=== PATIENT | female | born 1935 ===

== ENCOUNTER 2024-05-04 11:45 | Emergency (ER) | payer MEDICARE, BC, SELFPAY ==
[2024-05-04] VITALS (20 sets, daily range): BP systolic 136–210; BP diastolic 60–76; PULSE 74–87; RESP 19; TEMP 36.7; O2SAT 95–98
--- NOTE | 2024-05-04 12:15 | DI.CT_ITS ---
Exam(s) CT RENAL COLIC WO EXAM: CT RENAL COLIC WO CLINICAL HISTORY: left flank pain. TECHNIQUE: Imaging Protocol: Axial computed tomography images with coronal and sagittal reformatted images were created and reviewed CONTRAST MATERIAL: Intravenous: none Oral: None COMPARISON: None FINDINGS: VISUALIZED LUNG BASES: No nodules nor pleural effusions evident. ABDOMEN: There is no ascites. LIVER: There is a benign-appearing calcific density in the right hepatic lobe measuring approximately 2 x 1.7 cm. No other focal hepatic findings on this non few study. GALLBLADDER/BILIARY: No obvious gallbladder pathology. CBD is not dilated. PANCREAS: No evidence of pancreatic mass nor dilatation of the pancreatic duct. SPLEEN: Spleen is not enlarged. No obvious intrasplenic lesions. ADRENALS: There are no significant adrenal masses. KIDNEYS:Left kidney unremarkable. Right kidney unremarkable. No solid renal masses. No calculi nor hydronephrosis. . ABDOMINAL AORTA: Calcified but not enlarged. Iliac arteries also calcified but not enlarged. LYMPH NODES: There is no retroperitoneal nor paraaortic adenopathy. ABDOMINAL WALL: No evidence of significant anterior abdominal wall nor inguinal hernia. GI: There is no evidence of bowel obstruction, free air, nor abscess. PELVIS: LYMPH NODES: There is no intrapelvic nor inguinal adenopathy. GI: No evidence of appendicitis.No evidence of sigmoid diverticulitis.Part of the pelvis is obscured by beam hardening artifact from right hip prosthesis. URINARY BLADDER: Obscured by beam hardening artifact from right hip prosthesis. Bladder is not diste nded. REPRODUCTIVE: Uterus is atrophic or surgically absent. Adnexal regions are obscured by beam hardenin g artifact from right hip prosthesis. OSSEOUS: Right hip prosthesis. No fractures. Advanced disc space narrowing L3-4 level. No listhesis. No significant osseous lesio ns. IMPRESSION: 1. No evidence of radiopaque urinary tract calculi. No hydronephrosis. 2. Urinary bladder is obscured by beam hardening artifact from right hip prosthesis. 3. Other findings as above. Findings discussed with ER provider 05/04/2024 2:01 p.m. RADIATION DOSE DELIVERED: 204.96mGy.cm Total DLP DATA REPOSITORY: All CT scans at this facility are submitted to the National Radiology Data Registry (NRDR) Dose Index Registry (DIR) with the [employer] ([employer]). RADIATION OPTIMIZATION: All CT scans at this facility use at least one of these dose optimization te chniques: automated exposure control; mA and/or kV adjustment per patient size (includes targeted exa ms where dose is matched to clinical indication); or iterative reconstruction.
--- NOTE | 2024-05-04 12:15 | DI.CT_ITS ---
Exam(s) CT LUMBAR SPINE RECONS EXAM: CT LUMBAR SPINE RECONS CLINICAL HISTORY: compression force injury, left flank pain. TECHNIQUE: Imaging Protocol: Axial computed tomography images with coronal and sagittal reformatted images were created and reviewed COMPARISON: No exams were available for comparison FINDINGS: OSSEOUS: There are no compression fractures lumbar vertebral bodies but there is significant height l oss superior endplate level of T12 vertebral body. Approximately 30 percent height loss. There is m ild posterior displacement of the posterior cortex by approximately 3 mm, this being posterior-superi yannick. There is no prominent compromise of the canal at this level. No facet malalignment at this le kenan. Otherwise the remainder of the lumbosacral spinal canal exhibits advanced disc space narrowing at L3- 4 level and mild central canal stenosis at this level. Mild canal stenosis also evident at L4-5 leve l. There is multilevel facet arthropathy in the lumbar spine. IMPRESSION: 1. T12 compression fracture, either acute or subacute. Approximately 3 mm posterior displacement of the posterior cortex. 2. Incidental note of mild central spinal canal stenosis at L3-4 and L4-5 levels. RADIATION DOSE DELIVERED: 204.96mGy.cm Total DLP DATA REPOSITORY: All CT scans at this facility are submitted to the National Radiology Data Registry (NRDR) Dose Index Registry (DIR) with the [employer] (ACR). RADIATION OPTIMIZATION: All CT scans at this facility use at least one of these dose optimization te chniques: automated exposure control; mA and/or kV adjustment per patient size (includes targeted exa ms where dose is matched to clinical indication); or iterative reconstruction.
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
[2024-05-04] MEDS: Lidocaine 5% Patch 1 PATCH TP (12:33)
[2024-05-04] MEDS: Acetaminophen 325 MG TAB 650 MG PO (12:34)
[2024-05-04 12:52] LABS: Bilirubin Negative (Negative); Blood Negative (Negative); Clarity Clear (Clear); Glucose Negative (Negative); Ketones Negative (Negative); Leukocyte Esterase Negative (Negative); Nitrite Negative (Negative); Specific Gravity 1.015 (1.005-1.025); Urobilinogen 0.2 mg/dL (Up to 0.2)
== END 2024-05-04 15:35 | disposition home or self-care (01) ==
PROVIDERS: Emergency Provider Physician Assistant; PCP Internal Medicine Geriatric Medicine
DX: S22.080A Wedge compression fracture of T11-T12 vertebra, initial encounter for closed fracture (principal); M25.552 Pain in left hip; M62.838 Other muscle spasm; N20.0 Calculus of kidney
CPT/HCPCS: 99284; 74176; 81003

== ENCOUNTER 2025-02-12 14:23 | Outpatient (REF) | payer MEDICARE, BC, SELFPAY | END 2025-02-12 14:24 | disposition home or self-care (01) | LOC: LBN 14:23 | PROVIDERS: PCP Internal Medicine; Visit Provider Nurse Practitioner Family | DX: N30.00 Acute cystitis without hematuria (principal) | CPT/HCPCS: 87077; 87086; 87186 ==